=== PATIENT | female | born 1935 ===

== ENCOUNTER 2017-08-03 04:30 | Outpatient (CLI) | payer MEDICARE, BC | END 2017-08-03 23:59 | disposition home or self-care (01) | LOC: DIABETIC 04:30 | PROVIDERS: ATTEND Specialist | DX: E11.9 Type 2 diabetes mellitus without complications (principal) | CPT/HCPCS: G0108 ==

== ENCOUNTER 2018-02-09 00:22 | Outpatient (CLI) | payer MEDICARE, BC | END 2018-02-09 23:59 | disposition home or self-care (01) | LOC: DIABETIC 00:22 | PROVIDERS: ATTEND Specialist | DX: E11.9 Type 2 diabetes mellitus without complications (principal); Z79.84 Long term (current) use of oral hypoglycemic drugs; Z79.82 Long term (current) use of aspirin | CPT/HCPCS: G0108 ==

== ENCOUNTER 2018-05-11 02:09 | Outpatient (CLI) | payer MEDICARE, BC | END 2018-05-11 23:59 | disposition home or self-care (01) | LOC: DIABETIC 02:09 | PROVIDERS: ATTEND Specialist | DX: E11.65 Type 2 diabetes mellitus with hyperglycemia (principal); Z79.82 Long term (current) use of aspirin | CPT/HCPCS: G0108 ==